=== PATIENT | female | born 1950 | race Caucasian/White ===

== ENCOUNTER → 2017-03-09 | Outpatient (CLI) | payer MEDICARE, BC ==
[~2017-03-09] MED LIST: ASPI-496 PO; CINN500C2 PO; GLIM4TAB2 PO; HYDR25TA6 PO; INSU100V8 SQ; LISI40TA PO; METF10002 PO; SIMV40TA3 PO; TERB250T3 PO; VENL75TA PO; [UNRECOGNIZED DRUG - CODE] PO
[2017-03-09 13:12] LABS: ASPARTATE AMINO TRANSFERASE 9 U/L (15-37); BLOOD UREA NITROGEN 24 mg/dL (7-18)
== END | disposition home or self-care (01) ==
LOC: STAR 11:18
PROVIDERS: ATTEND Orthopaedic Surgery
DX: Z01.818 Encounter for other preprocedural examination (principal); M19.011 Primary osteoarthritis, right shoulder; E11.9 Type 2 diabetes mellitus without complications
CPT/HCPCS: 36415; 80053; 81001; 87081; 87086; 93005

== ENCOUNTER 2017-03-15 11:25 | Inpatient (IN) | payer MEDICARE, BC ==
[2017-03-09 11:51] VITALS: BP 145/95
[~2017-03-15] VITALS: Ht 165.1 cm; Wt 93.3 kg
[~2017-03-15 11:25] MED LIST changes: +BUPIVACAINE/PF 0.5% ONE; +CLINDAMYCIN 150 MG/ML, 6ML ONE; +MIDAZOLAM 1 MG/ML, 2ML ONE
[2017-03-15] MEDS ORDERED: VANCOMYCIN PER PHARMACY MC STA (11:42)
[2017-03-15] MEDS ORDERED: METOPROLOL 1 MG/ML, 5ML IV PRN ×2 (12:00→14:00)
[2017-03-15] MEDS ORDERED: OXYcodone 5 MG/5 ML ORAL.SOL UDC PO PRN ×2 (12:00→14:00)
[2017-03-15] MEDS ORDERED: HYDROmorphone 1 MG/ML, 1ML IV PRN ×2 (12:00→14:00)
[2017-03-15] MEDS ORDERED: FENTANYL PF 100 MCG/2ML IV PRN ×2 (12:00→14:00)
[2017-03-15] MEDS ORDERED: ONDANSETRON 2MG/ML, 2ML IVPush PRN ×2 (12:00→14:00)
[2017-03-15] MEDS ORDERED: VANCOMYCIN 1,400 MG in SODIUM CHLORIDE 0.9% 250 ML IV ONE (12:00)
[2017-03-15] MEDS ORDERED: ACETAMINOPHEN 325 MG TABLET PO PRN ×2 (12:00→14:00)
[2017-03-15] MEDS ORDERED: hydrALAzine 20 MG/ML, 1ML IV PRN ×2 (12:00→14:00)
[2017-03-15] MEDS ORDERED: MEPERIDINE/PF 25MG/0.5ML IVPush PRN (12:00)
[2017-03-15] MEDS ORDERED: LABETALOL 5MG/ML, 20ML IV PRN ×2 (12:00→14:00)
[2017-03-15] MEDS ORDERED: EPHEDRINE 50 MG/ML, 1ML IVPush PRN ×2 (12:00→14:00)
[2017-03-15] MEDS ORDERED: ALBUTEROL SULFATE 2.5 MG/3 ML NPPB PRN ×2 (12:00→14:00)
[2017-03-15] MEDS ORDERED: LACTATED RINGERS 1,000 ML IV SCH (12:14)
[2017-03-15] MEDS ORDERED: INSULIN REGULAR 100 UNITS/ML, 3ML VIAL SQ-INSULIN ONE (12:30)
[2017-03-15] MEDS ORDERED: LIDOCAINE 1%, 2ML SQ PRN (12:30)
[2017-03-15] MEDS ORDERED: INSULIN SINGLE DOSE, ER SQ-INSULIN ONE (12:34)
[2017-03-15] MEDS ORDERED: SENNA/DOCUSATE TABLET PO PRN (13:00)
[2017-03-15] MEDS ORDERED: DIPHENHYDRAMINE 25 MG CAPSULE PO PRN (13:00)
[2017-03-15] MEDS ORDERED: morphine SULFATE 10 MG/ML, 1ML IV PRN (13:00)
[2017-03-15] MEDS ORDERED: MAGNESIUM HYDROXIDE 8%, 30ML UDC PO PRN (13:00)
[2017-03-15] MEDS ORDERED: ALUMINUM/MAG/SIMETHICONE 30 ML UDC PO PRN (13:00)
[2017-03-15] MEDS ORDERED: ONDANSETRON 2MG/ML, 2ML IV PRN (13:00)
[2017-03-15] MEDS ORDERED: PROMETHAZINE 25 MG/ML, 1ML IM PRN (13:00)
[2017-03-15] MEDS ORDERED: BISACODYL 10 MG SUPP PR PRN (13:00)
[2017-03-15] MEDS ORDERED: NEOSTIGMINE 1 MG/ML, 10ML ONE (13:38)
[2017-03-15] MEDS ORDERED: ROCURONIUM 10 MG/ML ONE (13:38)
[2017-03-15] MEDS ORDERED: GLYCOPYRROLATE 0.2MG/1ML ONE (13:38)
[2017-03-15] MEDS ORDERED: PROPOFOL 10 MG/ML, 20ML ONE (13:38)
[2017-03-15] MEDS ORDERED: ONDANSETRON 2MG/ML, 2ML ONE (13:38)
[2017-03-15] MEDS ORDERED: OXYcodone 5 MG/5 ML ORAL.SOL UDC ONE (16:18)
[2017-03-15] MEDS: INSULIN DETEMIR 100 UNITS/ML, PEN SQ-INSULIN SCH ×2 (17:20→23:47)
[2017-03-15] MEDS: KETOROLAC 30 MG/1 ML IV SCH ×2 (17:20→22:54)
[2017-03-15] MEDS: SODIUM CHLORIDE 0.9% 1,000 ML IV SCH ×2 (17:55→22:35)
[2017-03-15] MEDS: CEFAZOLIN PMX 2GM/50ML 50 ML IVPB SCH (18:00)
[2017-03-15] MEDS ORDERED: SIMVASTATIN 40 MG TABLET PO SCH (21:00)
[2017-03-15] MEDS: DOCUSATE 100 MG CAPSULE PO SCH (22:59)
[2017-03-15] MEDS: VENLAFAXINE 75MG TABLET PO SCH (22:59)
[2017-03-15] MEDS: FAMOTIDINE 20 MG TABLET PO SCH (22:59)
[2017-03-15] MEDS: metFORMIN 500 MG TABLET PO SCH (23:00)
[2017-03-16 00:02] VITALS: BP 133/70
[2017-03-16] MEDS: CEFAZOLIN PMX 2GM/50ML 50 ML IVPB SCH ×2 (01:47→10:13)
[2017-03-16 04:06] VITALS: BP 138/76
[2017-03-16] MEDS: SODIUM CHLORIDE 0.9% 1,000 ML IV SCH (05:42)
[2017-03-16] MEDS: KETOROLAC 30 MG/1 ML IV SCH (06:14)
[2017-03-16 08:35] VITALS: BP 133/64
[2017-03-16] MEDS ORDERED: TERBINAFINE 250MG TABLET PO SCH (09:00)
[2017-03-16] MEDS ORDERED: GLIMEPIRIDE 4 MG TABLET PO SCH (09:00)
[2017-03-16] MEDS ORDERED: ASPIRIN 81 MG TABLET EC PO SCH (09:00)
[2017-03-16] MEDS ORDERED: HYDROCHLOROTHIAZIDE 25 MG TABLET PO SCH (09:00)
[2017-03-16] MEDS ORDERED: LISINOPRIL 20 MG TABLET PO SCH (09:00)
[2017-03-16] MEDS: metFORMIN 500 MG TABLET PO SCH (09:08)
[2017-03-16] MEDS: DOCUSATE 100 MG CAPSULE PO SCH (09:08)
[2017-03-16] MEDS: FAMOTIDINE 20 MG TABLET PO SCH (09:08)
[2017-03-16] MEDS: VENLAFAXINE 75MG TABLET PO SCH (09:08)
[2017-03-16 10:00] VITALS: BP 128/65
== END 2017-03-16 12:45 | disposition home or self-care (01) | DRG 483 ==
LOC: ORIP 11:34 → 4NOR 16:50 → DCLOUNGE 03-16 11:30
PROVIDERS: ADMIT Orthopaedic Surgery; ATTEND Orthopaedic Surgery
PROC: 0RPJ04Z Removal of Internal Fixation Device from Right Shoulder Joint, Open Approach (ICD-10-PCS; principal; 2017-03-16)
PROC: 0RRJ00Z Replacement of Right Shoulder Joint with Reverse Ball and Socket Synthetic Substitute, Open Approach (ICD-10-PCS; 2017-03-16)
PROC: 0LS30ZZ Reposition Right Upper Arm Tendon, Open Approach (ICD-10-PCS; 2017-03-16)
DX: M19.011 Primary osteoarthritis, right shoulder (principal); M75.101 Unspecified rotator cuff tear or rupture of right shoulder, not specified as traumatic; M65.811 Other synovitis and tenosynovitis, right shoulder; I10 Essential (primary) hypertension; E66.9 Obesity, unspecified; K21.9 Gastro-esophageal reflux disease without esophagitis; E11.9 Type 2 diabetes mellitus without complications; E78.5 Hyperlipidemia, unspecified; Z79.899 Other long term (current) drug therapy
CPT/HCPCS: 81001; 82962; 87086; C1713; C1776; J0690; J1885; J2250; J2405; J2704; J2710; J3370; J3490; C1769; J1815; J7030; J7050; J7120; Q0163